=== PATIENT | male | born 1975 | race Caucasian/White ===

== ENCOUNTER 2019-05-07 07:26 | Emergency (ER) | payer BC ==
[2019-05-07 07:49] VITALS: BP 122/81
--- NOTE | 2019-05-07 08:18 | UC ---
Respiratory Complaint HPI - HPI Summary HPI Summary: cough x 5 days cough is productive with yellow / green sputum cough is moderate 3 out of 10 worse with deep breathing and exertion ,better with rest fluid denies any fever, + chills, no wheezing , no sob , no sore throat, + bilateral ear pain - History of Current Complaint Chief Complaint: UCGeneralIllness Stated Complaint: COUGH,ST,EAR PAIN Time Seen by Provider: 05/07/19 08:00 Hx Obtained From: Patient Onset/Duration: Gradual Onset, Lasting Days - 5, Still Present Timing: Constant Severity Initially: Moderate Severity Currently: Moderate Pain Intensity: 3 Pain Scale Used: 0-10 Numeric Character: Cough: Productive Aggravating Factors: Exertion, Deep Breaths Alleviating Factors: Other - rest and fluid Associated Signs And Symptoms: Positive: Chills. Negative: Dyspnea, Fever, Pleuritic Chest Pain, Wheezing, Hemoptysis, Dizziness, Calf Pain, Calf Swelling , URI, Nasal Congestion, Sinus Discomfort - Allergies/Home Medications Allergies/Adverse Reactions: Allergies Allergy/AdvReac Type Severity Reaction Status Date / Time No Known Allergies Allergy Verified 05/07/19 07:49 PMH/Surg Hx/FS Hx/Imm Hx Previously Healthy: Yes - Surgical History Surgical History: Yes Surgery Procedure, Year, and Place: right shoulder - Family History Known Family History: Negative: Diabetes - Social History Alcohol Use: Occasionally Substance Use Type: Excessive Caffeine Smoking Status (MU): Current Some Day Smoker Type: Cigarettes Review of Systems All Other Systems Reviewed And Are Negative: Yes Constitutional: Positive: Chills, Fatigue Skin: Positive: Negative Eyes: Positive: Negative ENT: Positive: Sore Throat Respiratory: Positive: Cough. Negative: Shortness Of Breath Cardiovascular: Negative: Palpitations, Chest Pain Is Patient Immunocompromised?: No Physical Exam Triage Information Reviewed: Yes Appearance: Well-Appearing, No Pain Distress, Well-Nourished Vital Signs: Initial Vital Signs Temp 98.7 F 05/07/19 07:42 Pulse 75 05/07/19 07:42 Resp 18 05/07/19 07:42 BP 122/81 05/07/19 07:42 Pulse Ox 98 05/07/19 07:42 Vital Signs Reviewed: Yes Eye Exam: Normal Eyes: Positive: Conjunctiva Clear ENT: Positive: Normal ENT inspection, Hearing grossly normal, Pharyngeal erythema, TMs normal. Negative: TM bulging, TM dull, TM red, Tonsillar swelling , Tonsillar exudate Neck exam: Normal Neck: Positive: Supple, Nontender, No Lymphadenopathy Respiratory: Positive: Chest non-tender, Lungs clear, Normal breath sounds Cardiovascular: Positive: RRR, No Murmur, Pulses Normal Skin Exam: Normal Respiratory Course/Dx - Differential Dx/Diagnosis Provider Diagnosis: Bronchitis Discharge - Sign-Out/Discharge Documenting (check all that apply): Patient Departure All imaging exams completed and their final reports reviewed: No Studies - Discharge Plan Condition: Stable Disposition: HOME Prescriptions: Codeine Phosphate/Guaifenesin [Cheratussin AC] 10 ml PO Q8H #120 ml MDD 30 ml predniSONE [Prednisone 20 MG TAB] 40 mg PO DAILY #10 tablet Patient Education Materials: Acute Bronchitis (ED) Referrals: No Primary Care Phys,NOPCP [Primary Care Provider] - If Needed - Billing Disposition and Condition Condition: STABLE Disposition: Home
== END 2019-05-07 08:12 | disposition home or self-care (01) ==
LOC: UCCORT 07:26
DX: J40 Bronchitis, not specified as acute or chronic (principal); F17.210 Nicotine dependence, cigarettes, uncomplicated
CPT/HCPCS: 99202; G0463